=== PATIENT | female | born 1995 | race Asian ===

== ENCOUNTER → 2017-01-29 | Outpatient (CLI) | payer MEDICAID ==
[~2017-01-29] MED LIST: DERMOPLAST SPRA56 GM TP; LAN-O-SOOTHE7 GM TP; MOTRIN-DPS800 MG PO; NIPPLECREAM TP; PRENATAL VIT1 TAB PO; TYLENOL EXTRA500 M1 PO
== END | disposition home or self-care (01) ==
LOC: RAD.S 13:30
DX: Z36 Encounter for antenatal screening of mother (principal); Z3A.30 30 weeks gestation of pregnancy